=== PATIENT | female | born 1950 | race Caucasian/White ===

== ENCOUNTER → 2017-09-24 | Outpatient (CLI) | payer MEDICARE ==
--- NOTE | 2017-09-24 13:01 | RADIOLOGY REPORT PS360 ---
[id number] VIEWS HISTORY: RT RIB PAIN ORDERING PHYSICIAN: MAHESH GARCIA PATIENT AGE: 67 years COMPARISON: None FINDINGS: A frontal view of the chest shows no acute finding. Multiple views of the right ribs were obtained. No fracture or dislocation. No lytic or blastic change. There is an old fracture of the right clavicle IMPRESSION: Negative RIBS. If pain persists, consider follow-up exam in 7-[address] with 3-D reformats.
== END ==
LOC: RAD 12:22
DX: R07.81 Pleurodynia (principal)